=== PATIENT | female | born 1995 | race Caucasian/White ===

== ENCOUNTER 2018-04-28 14:08 | Emergency (ER) | payer OTHER ==
[~2018-04-28] VITALS: Ht 172.7 cm; Wt 117.2 kg
[~2018-04-28 14:08] MED LIST: MOTRIN800 MG PO; NAPROSYN-EC500 MG PO; VICODIN 5-3001 EACH PO; VICODIN,LORT1 TABLET PO; ZOFRAN ODT4 MG PO; ZOFRAN4 MG PO
[2018-04-28] MEDS ORDERED: FLEXERIL10 MG PO (15:51)
[2018-04-28] MEDS ORDERED: MOTRIN800 MG PO (15:51)
[2018-04-28 16:14] VITALS: BP 126/73
== END 2018-04-28 16:14 | disposition home or self-care (01) ==
LOC: EME 14:08
DX: R51 Headache (principal); M25.512 Pain in left shoulder; S80.02XA Contusion of left knee, initial encounter; R07.9 Chest pain, unspecified; M54.5 Low back pain; M79.632 Pain in left forearm; V47.1XXA Car passenger injured in collision with fixed or stationary object in nontraffic accident, initial encounter; Y92.410 Unspecified street and highway as the place of occurrence of the external cause; Z88.5 Allergy status to narcotic agent; Z88.8 Allergy status to other drugs, medicaments and biological substances
CPT/HCPCS: 70450; 71046; 72100; 73030; 73090; 73564; 99281; 99284